=== PATIENT | male | born 1955 | race Asian ===

== ENCOUNTER 2022-05-28 04:33 | Inpatient (IN) | payer OTHER ==
[2022-05-28] MEDS ORDERED: ASPIRIN 81 MG CHEWABLE TABLET ONE (05:10)
[2022-05-28 05:29] LABS: Absolute Lymphocytes (CBC) 1.4 K/uL (0.7-4.9); Hematocrit 40.1 % (39.6-49.0); Lymphocytes % 23.2 % (15.3-44.8); MCV 84.9 fL (80-100); MPV 7.4 fL (7.6-11.3); RBC Red Blood Cell Count 4.72 M/uL (4.33-5.43)
[2022-05-28 05:35] LABS: Protime INR 1.33
[2022-05-28 05:50] LABS: Albumin 3.9 g/dL (3.4-5.0); Bilirubin Direct 0.2 mg/dL (0-0.2); Bilirubin Total 0.8 mg/dL (0.2-1.0); Magnesium 2.4 mg/dL (1.8-2.4); Protein, Total 7.3 g/dL (6.4-8.2)
--- NOTE | 2022-05-28 05:57 | RAD REPORT ---
EXAM DESCRIPTION: RAD - Chest Single View - 05/28/2022 5:30 am CLINICAL HISTORY: CHEST PAIN COMPARISON: Portable May 19 TECHNIQUE: AP portable chest image was obtained 05/28/2022 5:30 am . FINDINGS: Lungs are clear. Heart and vasculature are normal. No measurable pleural effusion and no p neumothorax. No acute bony abnormality seen. No acute aortic findings suspected. IMPRESSION: No acute cardiopulmonary process. No significant change from comparison study.
--- NOTE | 2022-05-28 06:02 | EDPHYS ---
Physician Documentation [facility] Name: Melvina Cisneros Age: 66 yrs Sex: Male : 1955 Arrival Date: 05/28/2022 Time: 04:34 Bed 5 Private MD: ED Physician Eneida Tsang HPI: 05/28 05:06 This 66 yrs old Male presents to ER via Wheelchair with complaints of Chest Pain sd2 > 30 y/o, High Blood Pressure. 05:06 66-year-old male presents with chief complaint of left-sided chest pain and sd2 hypertension. He reports he was diagnosed with a stroke in our facility last week and has been on Xarelto and aspirin since then. He also reports his blood pressure has been difficult to control since then and they have made numerous changes to his medications. He took 2 doses of clonidine last night prior to going to bed due to elevated blood pressure readings in addition to taking his other normal blood pressure medications. He states he has been having intermittent left-sided chest pain that is nonradiating with shortness of breath. He has also had some intermittent episodes of right arm pain when his blood pressure is high. He also had several episodes of vomiting. He has a history of 3 prior cardiac stents. He states he was called by his PCP, Dr. Grace, today and told to come to the hospital for an angiogram.. Historical: - Allergies: 04:53 No Known Allergies; as6 - Home Meds: 04:53 Aspirin Oral [Active]; Xarelto oral [Active]; Clonidine Oral [Active]; Metoprolol as6 Tartrate Oral [Active]; amlodipine oral [Active]; - PMHx: 04:53 Hypercholesterolemia; Hypertensive disorder; Cerebrovascular accident; as6 - PSHx: 04:53 Cardiac Stent in 2010; as6 - Immunization history:: Client reports receiving the 2nd dose of the Covid vaccine, moderna. - Social history:: Smoking status: Patient denies any tobacco usage or history of. ROS: 05:06 Constitutional: Negative for fever, chills, and weight loss, Eyes: Negative for injury, sd2 pain, redness, and discharge. 05:06 MS/Extremity: Negative for injury and deformity, Skin: Negative for injury, rash, and discoloration, Neuro: Negative for headache, numbness and tingling. 05:06 Cardiovascular: Positive for chest pain, Negative for edema, orthopnea, palpitations. 05:06 Respiratory: Positive for shortness of breath, Negative for cough, dyspnea on exertion, wheezing. 05:06 Abdomen/GI: Positive for nausea and vomiting, Negative for abdominal pain, diarrhea. Exam: 05:06 Constitutional: This is a well developed, well nourished patient who is awake, alert, sd2 and in no acute distress. Head/Face: Normocephalic, atraumatic. Eyes: EOMI, normal conjunctiva bilaterally Chest/axilla: Normal chest wall appearance and motion. Nontender with no deformity. Cardiovascular: Bradycardic rate and regular rhythm with a normal S1 and S2. No gallops, murmurs, or rubs. 2+ distal pulses. Respiratory: Lungs have equal breath sounds bilaterally, clear to auscultation and percussion. No rales, rhonchi or wheezes noted. No increased work of breathing, no retractions or nasal flaring. Abdomen/GI: Soft, non-tender, with normal bowel sounds. No guarding or rebound. No evidence of tenderness throughout. Skin: Warm, dry with normal turgor. Normal color with no rashes, no lesions, and no evidence of cellulitis. MS/ Extremity: Pulses equal, no cyanosis. Neurovascular intact. Full, normal range of motion. Ambulatory without difficulty. Psych: Awake, alert, with orientation to person, place and time. Behavior, mood, and affect are within normal limits. 05:06 ECG was reviewed by the Attending Physician. Sinus bradycardia, rate 49, no STEMI sd2 criteria Vital Signs: 04:50 BP 153 / 83; Pulse 58; Resp 15 S; Temp 97.6(O); Pulse Ox 100% on R/A; Weight 98.43 kg as6 (R); Height 5 ft. 10 in. (177.80 cm) (R); Pain 6/10; 07:30 BP 147 / 78; Pulse 46; Resp 12; Pulse Ox 100% on R/A; Pain 0/10; mb9 04:50 Body Mass Index 31.14 (98.43 kg, 177.80 cm) as6 MDM: 04:41 Patient medically screened. sd2 05:06 Differential diagnosis: Differential diagnosis includes but is not limited to: ACS, sd2 DVT/PE, pneumothorax, dissection, musculoskeletal, anxiety, anemia, electrolyte abnormality, pneumonia, CHF, COPD among others. Data reviewed: vital signs, nurses notes, EKG. : Data reviewed: lab test result(s), radiologic studies. Counseling: I had a detailed sd2 discussion with the patient and/or guardian regarding: the historical points, exam findings, and any diagnostic results supporting the discharge/admit diagnosis, lab results, radiology results, the need for further work-up and treatment in the hospital. ED course: labs and imaging reviewed. labs grossly WNCL. Trop neg. EKG with no ischemic changes. CXR with no acute process. Discussed case with Dr. Grace who recommends starting a heparin gtt in preparation for a cath and will place admit orders on his behalf including a consult to Dr. Ruiz. . 06:47 ED course: Discussed case with Dr. Ruiz. Recommends no heparin drip and Lovenox only sd2 since patient took his Xarelto yesterday. Will change orders at this time.. 05/28 04:57 Order name: Basic Metabolic Panel; Complete Time: 05:52 sd2 05/28 04:57 Order name: CBC with Diff; Complete Time: 05:38 sd2 05/28 04:57 Order name: LFT's; Complete Time: 05:52 sd2 05/28 04:57 Order name: Magnesium; Complete Time: 05:52 sd2 05/28 04:57 Order name: NT PRO-BNP; Complete Time: 05:52 sd2 05/28 04:57 Order name: PT-INR; Complete Time: 05:38 sd2 05/28 04:57 Order name: Troponin HS; Complete Time: 05:52 sd2 05/28 06:14 Order name: CBC with Automated Diff EDMS 05/28 06:14 Order name: CBC with Automated Diff EDMS 05/28 06:14 Order name: Comprehensive Metabolic Panel EDMS 05/28 06:14 Order name: Comprehensive Metabolic Panel EDMS 05/28 06:14 Order name: PTT, Activated Partial Thromb EDMS 05/28 06:14 Order name: PTT, Activated Partial Thromb EDMS 05/28 07:34 Order name: SARS RAPID mw2 05/28 04:57 Order name: XRAY Chest (1 view); Complete Time: 05:58 sd2 05/28 04:57 Order name: EKG; Complete Time: 04:58 sd2 05/28 04:57 Order name: Cardiac monitoring; Complete Time: 04:57 sd2 05/28 04:57 Order name: EKG - Nurse/Tech; Complete Time: 04:57 sd2 05/28 04:57 Order name: IV Saline Lock; Complete Time: 05:22 sd2 05/28 04:57 Order name: Labs collected and sent; Complete Time: 05:22 sd2 05/28 04:57 Order name: O2 Per Protocol; Complete Time: 04:57 sd2 05/28 04:57 Order name: O2 Sat Monitoring; Complete Time: 04:57 sd2 05/28 06:04 Order name: CT Head Brain wo Cont; Complete Time: 06:48 sd2 05/28 06:14 Order name: CONS Physician Consult EDMS 05/28 06:14 Order name: NPO; Complete Time: 07:07 EDMS 05/28 08:08 Order name: SARS-COV-2 Antigen Rapid EDMS Administered Medications: 05:22 Drug: Aspirin Chewable Tablet 324 mg Route: PO; as6 06:48 CANCELLED (Physician Discretion): Heparin (PA-Bolus No thrombolytic) - HEParin 60 sd2 units/kg IVP once; Max 5000 units 06:48 CANCELLED (Physician Discretion): Heparin (PA Drip) 12 units/kg/hr - (HEParin 05817 sd2 units, D5W 500 ml) IV at calculated rate Per protocol; Max initial rate 1000 units/hr 07:33 Drug: Lovenox (enoxaparin) 1 mg/kg Route: Sub-Q; Site: right lower abdomen; mb9 09:47 Follow up: Response: No adverse reaction mb9 Disposition Summary: 05/28/22 06:01 Hospitalization Ordered Hospitalization Status: Inpatient Admission sd2 Provider: Anibal Grace Location: Telemetry/MedSurg (Inpatient) sd2 Condition: Stable sd2 Problem: an ongoing problem sd2 Symptoms: have improved sd2 Bed/Room Type: Standard sd2 Room Assignment: 430(05/28/22 10:35) dw Diagnosis - Essential (primary) hypertension sd2 - Bradycardia, unspecified sd2 - Chest pain, unspecified sd2 Forms: - Medication Reconciliation Form sd2 - SBAR form sd2 Signatures: Dispatcher [employer] EDMaría Sanchez RN RN dw Castillo Manriquez RN RN as6 Eneida Tsang MD MD sd2 Oralia Osborn RN RN mb9 Corrections: (The following items were deleted from the chart) 04:55 04:53 Home Meds: None; as6 04:55 04:53 PMHx: Hypertensive disorder; as6 06:48 06:04 Heparin (PA-Bolus No thrombolytic) - HEParin 60 units/kg IVP once; Max 5000 units sd2 ordered. 06:48 06:04 Heparin (PA Drip) 12 units/kg/hr - (HEParin 43552 units, D5W 500 ml) IV at sd2 calculated rate Per protocol; Max initial rate 1000 units/hr ordered. sd2 10:35 06:01 sd2 dw
--- NOTE | 2022-05-28 06:02 | ER ---
Nurse's Notes [facility] Name: Melvina Cisneros Age: 66 yrs Sex: Male : 1955 Arrival Date: 05/28/2022 Time: 04:34 Bed 5 Private MD: Diagnosis: Essential (primary) hypertension;Bradycardia, unspecified;Chest pain, unspecified Presentation: 05/28 04:51 Chief complaint: Patient states: "At home my blood pressure was really high and Dr. juan Grace said to come here". Coronavirus screen: At this time, the client does not indicate any symptoms associated with coronavirus-19. Ebola Screen: No symptoms or risks identified at this time. Initial Sepsis Screen: Does the patient meet any 2 criteria? No. Patient's initial sepsis screen is negative. Does the patient have a suspected source of infection? No. Patient's initial sepsis screen is negative. Risk Assessment: Do you want to hurt yourself or someone else? Patient reports no desire to harm self or others. Onset of symptoms was May 27, 2022. 04:51 Method Of Arrival: Wheelchair as6 04:51 Acuity: ELISE 3 as6 Historical: - Allergies: 04:53 No Known Allergies; as6 - Home Meds: 04:53 Aspirin Oral [Active]; Xarelto oral [Active]; Clonidine Oral [Active]; Metoprolol as6 Tartrate Oral [Active]; amlodipine oral [Active]; - PMHx: 04:53 Hypercholesterolemia; Hypertensive disorder; Cerebrovascular accident; as6 - PSHx: 04:53 Cardiac Stent in 2010; as6 - Immunization history:: Client reports receiving the 2nd dose of the Covid vaccine, moderna. - Social history:: Smoking status: Patient denies any tobacco usage or history of. Screenin:55 Abuse screen: Denies threats or abuse. Denies injuries from another. Nutritional as6 screening: No deficits noted. Tuberculosis screening: No symptoms or risk factors identified. Fall Risk None identified. Assessment: 04:56 General: Appears in no apparent distress. Behavior is calm, cooperative. Pain: as6 Complains of pain in left clavicle, anterior aspect of left upper chest and mid-sternal area. Pain: Complains of pain in head Quality of pain is described as pressure. Neuro: Level of Consciousness is awake, alert, obeys commands, Oriented to person, place, time, situation, Reports headache. Cardiovascular: Reports chest pain, Capillary refill < 3 seconds Patient's skin is warm and dry. Respiratory: Respiratory effort is even, unlabored, Respiratory pattern is regular, symmetrical. 07:00 Reassessment: received report from LUCILA Lim. mb9 07:30 General: Appears in no apparent distress. comfortable, Behavior is calm, cooperative. mb9 Pain: Denies pain. Neuro: Level of Consciousness is awake, alert, obeys commands, Oriented to person, place, time, situation, Appropriate for age. Cardiovascular: Denies chest pain, Heart tones S1 S2 present Rhythm is sinus bradycardia. Cardiovascular: Reports that his HR usually runs between 30-50 bpm. Respiratory: Airway is patent Respiratory effort is even, unlabored, Respiratory pattern is regular, symmetrical, Breath sounds are clear bilaterally. GI: Abdomen is flat, Bowel sounds present X 4 quads. : No signs and/or symptoms were reported regarding the genitourinary system. EENT: No signs and/or symptoms were reported regarding the EENT system. Derm: Skin is pink, warm \\T\\ dry. Musculoskeletal: Range of motion: intact in all extremities. Vital Signs: 04:50 BP 153 / 83; Pulse 58; Resp 15 S; Temp 97.6(O); Pulse Ox 100% on R/A; Weight 98.43 kg as6 (R); Height 5 ft. 10 in. (177.80 cm) (R); Pain 6/10; 07:30 BP 147 / 78; Pulse 46; Resp 12; Pulse Ox 100% on R/A; Pain 0/10; mb9 04:50 Body Mass Index 31.14 (98.43 kg, 177.80 cm) as6 ED Course: 04:34 Patient arrived in ED. bp1 04:41 Eneida Tsang MD is Attending Physician. sd2 04:49 EKG done, by ED staff, reviewed by Eneida Tsang MD. wm 04:49 Placed in gown. Bed in low position. Call light in reach. Side rails up X2. Adult w/ wm patient. Warm blanket given. Client placed on continuous cardiac and pulse oximetry monitoring. NIBP monitoring applied. quality assurance monitor chassis on. Pulse ox on. 04:50 Castillo Manriquez, RN is Primary Nurse. as6 04:50 Arm band placed on. as6 04:53 Triage completed. as6 05:22 Inserted saline lock: 20 gauge in right hand, using aseptic technique. Blood collected. as6 05:22 Basic Metabolic Panel Sent. as6 05:22 CBC with Diff Sent. as6 05:22 LFT's Sent. as6 05:23 Magnesium Sent. as6 05:23 NT PRO-BNP Sent. as6 05:23 PT-INR Sent. as6 05:23 Troponin HS Sent. as6 05:32 XRAY Chest (1 view) In Process Unspecified. EDMS 06:00 Anibal Grace MD is Hospitalizing Provider. sd2 06:21 CT Head Brain wo Cont In Process Unspecified. EDMS 07:45 SARS RAPID Sent. mb9 08:03 Primary Nurse role handed off by Castillo Manriquez RN mb9 08:03 Oralia Osborn, RN is Primary Nurse. mb9 Administered Medications: 05:22 Drug: Aspirin Chewable Tablet 324 mg Route: PO; as6 06:48 CANCELLED (Physician Discretion): Heparin (AL-Bolus No thrombolytic) - HEParin 60 sd2 units/kg IVP once; Max 5000 units 06:48 CANCELLED (Physician Discretion): Heparin (AL Drip) 12 units/kg/hr - (HEParin 25086 sd2 units, D5W 500 ml) IV at calculated rate Per protocol; Max initial rate 1000 units/hr 07:33 Drug: Lovenox (enoxaparin) 1 mg/kg Route: Sub-Q; Site: right lower abdomen; mb9 09:47 Follow up: Response: No adverse reaction mb9 Medication: 04:57 VIS not applicable for this client. as6 Outcome: 06:01 Decision to Hospitalize by Provider. sd2 11:30 Patient left the ED. mb9 Signatures: Dispatcher [employer] EDSD Jessika Newsome [facility] Lis Stone Castillo Manriquez, RN RN as6 Eneida Tsang MD MD sd2 Oralia Osborn RN RN mb9 Corrections: (The following items were deleted from the chart) 04:55 04:53 Home Meds: None; as 04:55 04:53 PMHx: Hypertensive disorder; as6 as6
[2022-05-28] MEDS ORDERED: ONDANSETRON 4 MG/2 ML VIAL IV PRN (06:07)
[2022-05-28] MEDS ORDERED: ACETAMINOPHEN 500 MG TAB PO PRN (06:07)
--- NOTE | 2022-05-28 06:44 | RAD REPORT ---
EXAM DESCRIPTION: CT - Head Brain Wo Cont - 05/28/2022 6:21 am CLINICAL HISTORY: Hypertensive emergency COMPARISON: Head angio dated 05/19/2022; Brain Wo Cont dated 05/19/2022 TECHNIQUE: Axial 5 mm thick images of the head were obtained without IV contrast. All CT scans are performed using dose optimization technique as appropriate and may include automated exposure control or mA/KV adjustment according to patient size. FINDINGS: No intracranial hemorrhage is present. No focal mass lesion identified. No cerebral edema or sulcal effacement. No midline shift is present. Ventricles are normal size, similar to prior imagi ng. An acute cortical based infarction is not seen. No abnormal extra-axial fluid collections. Scatte red hypodensities are seen in the cerebral white matter matching areas of white matter disease seen o n the recent MRI study. Mastoid air cells and visualized portions of the paranasal sinuses are clear. No acute bony findings. IMPRESSION: Negative non-contrast CT head examination for acute intracranial process. Above detailed findings are stable from the May 19 examination.
[2022-05-28] MEDS ORDERED: HEPARIN/D5W 25,000 UNIT/500 ML BAG IV SCH (07:00)
[2022-05-28] MEDS ORDERED: ENOXAPARIN 100 MG/ML SYR SQ ONE (07:14)
[2022-05-28 08:08] LABS: SARS-CoV-2 Antigen Rapid Res Negative (Negative)
[2022-05-28] MEDS ORDERED: ENOXAPARIN 100 MG/ML SYR SQ SCH ×3 (09:00→21:00)
[2022-05-28 09:57] VITALS: BMI 30.9
--- NOTE | 2022-05-28 16:14 | EKG ---
Test Date: 2022-05-28 Test Time: 04:41:26 Jury Consultant: MEASUREMENT RESULTS: Intervals: Rate: 49 WV: 206 QRSD: 90 QT: 468 QTc: 422 [place]: P: 41 WV: 206 QRS: 33 T: 0 INTERPRETIVE STATEMENTS: Sinus bradycardia Possible Inferior infarct, age undetermined Abnormal ECG Compared to ECG 05/19/2022 11:47:20 Sinus arrhythmia no longer present Myocardial infarct finding still present Electronically Signed On 05-28-22 16:13:26 CDT by Adrian Ruiz
--- NOTE | 2022-05-28 19:22 | P.HP ---
Certification for Inpatient Patient admitted to: Observation With expected LOS: <2 Midnights Practitioner: I am a practitioner with admitting privileges, knowledge of patient current condition, hospital course, and medical plan of care. Services: Services provided to patient in accordance with Admission requirements found in Title 42 Section 412.3 of the Code of Federal Regulations Patient History Date of Service: 05/28/22 History of Present Illness: RANDALL HAS BEEN CARDIAC PATIENT WITH CORONARY DISEASE AND HAS HAD RECENT EMBOLIC EVENTS TO BRAIN WITH PARESTHESIA IN LEGS AND R ELBOW AND WEAKNESS IN L LEG THAT WAS MILD. AFTER THAT HE HAS BEEN ON XARELTO. HIS BP HAS BEEN FLUCTUATING SINCE THEN AND HAS NEEDED CLONIDINE PRN AND I HAD PUT HIM ON ELDEPRYL TO CUT DOWN ALDOSTERONE. HE HAD ARM PAIN AND VOMITING YESTERDAY SO I ASKED HIM TO COME TO ER FOR UNSTABLE ANGINA AND IMPENDING [place] AND HE WAS ADMITTED WITH PLAN FOR CATH IN AM. HE NEEDS TO BE ANTICOAGULATED TO CUT DOWN SYMPTOMS AND HIS BP HAS BEEN VERY STABLE AFTER BEING ON LOVENOX I PRESUME IT IS THE UNSTABLE ANGINA THAT WAS FLUCTUATING HIS BP. Allergies No Known Allergies Allergy (Unverified 05/19/22 21:38) Home medications list reviewed: Yes Home Medications: Rivaroxaban [Xarelto] 20 mg PO DAILY #90 tab 05/20/22 Amlodipine [Norvasc*] 5 mg PO BEDTIME 05/28/22 Aspirin [Aspirin EC 81 MG] 81 mg PO BEDTIME 05/28/22 Eplerenone 50 mg PO DAILY 05/28/22 Rosuvastatin Calcium 20 mg PO BEDTIME 05/28/22 cloNIDine HCL [Clonidine HCl] 0.1 mg PO PRN 05/28/22 - Past Medical/Surgical History Diabetic: No -: HTN -: HLD -: Obesity - Family History Father -: Stroke Mother -: Hypertension - Social History Smoking Status: Never smoker Alcohol use: No CD- Drugs: No Caffeine use: No Review of Systems 10-point ROS is otherwise unremarkable General: Weakness Physical Examination - Vital Signs Temperature: 98.1 F Blood Pressure: 132/64 Pulse: 40 Respirations: 16 Pulse Ox (%): 97 - Physical Exam General: Oriented x3, Moderate distress HEENT: Atraumatic, PERRLA, Mucous membr. moist/pink, EOMI, Sclerae nonicteric Neck: Supple, 2+ carotid pulse no bruit, No LAD, Without JVD or thyroid abnormality Respiratory: Clear to auscultation bilaterally, Normal air movement Cardiovascular: Regular rate/rhythm, Normal S1 S2 Gastrointestinal: Normal bowel sounds, No tenderness Musculoskeletal: No tenderness Integumentary: No rashes Neurological: Normal gait, Normal speech, Normal strength at 5/5 x4 extr, Normal tone, Normal affect Lymphatics: No axilla or inguinal lymphadenopathy - Studies Laboratory Data (last 24 hrs) 05/28/22 05:19: PT 14.6 H, INR 1.33 05/28/22 05:19: WBC 6.10, Hgb 13.7, Hct 40.1, Plt Count 282 05/28/22 05:19: Sodium 133 L, Potassium 4.0, BUN 10, Creatinine 1.02, Glucose 108 H, Magnesium 2.4, Total Bilirubin 0.8, AST 22, ALT 50, Alkaline Phosphatase 49 Assessment and Plan - Problems (Diagnosis) (1) Unstable angina Current Visit: Yes Status: Acute Plan: HPI I SUSPECT THIS IS THE REASON FOR UNCONTROLLED HTN. NEEDS ANGIOGRAM IN AM. NPO AFTER MIDNIGHT. HOLD XARELTO FOR 24 HOURS AT LEAST. (2) Uncontrolled hypertension Current Visit: Yes Status: Acute Plan: CAN BE MULTIFACTORIAL HPI OR RENAL ARTERY STENOSIS OR PRIMARY HYPERALDOSTERONISM. PROGNOSIS GUARDED. (3) Acute ischemic multifocal multiple vascular territories stroke Current Visit: No Status: Acute Plan: XARELTO CAN BE RESUMEED AFTER CATH. - Advance Directives Does patient have a Living Will: Yes Does patient have a Durable POA for Healthcare: Yes
[2022-05-28] MEDS ORDERED: cloNIDine HCL 0.1 MG TAB PO SCH (21:00)
[2022-05-28] MEDS: AMLODIPINE 5 MG TAB PO SCH (21:35)
[2022-05-28] MEDS: ASPIRIN EC 81 MG TAB PO SCH (21:36)
[2022-05-28] MEDS: ROSUVASTATIN 10 MG TAB PO SCH (21:36)
[2022-05-28] MEDS: NACHLORIDE 0.45% 1,000 ML IV SCH (21:41)
--- NOTE | 2022-05-29 00:03 | CON ---
Date of Consultation: 05/28/2022 Reason For Consultation: Chest pain. History Of Present Illness: This is a 66-year-old male, well known to me with recent thromboembolic stroke, who comes into the hospital with chest pain, left sided that goes to the left arm with numbne ss feeling. He has been having a difficulty controlling his blood pressure and the patient has been having uncontrolled blood pressure. He keeps checking his blood pressure every 15-20 minutes and whe n blood pressure goes higher he gets more anxious and blood pressure keeps going up. He started havi ng chest pain so presented to the emergency room. Past Medical History: Hypertension, hyperlipidemia, and obesity. Medications: Refer to reconciliation sheet for detailed list. Allergies: NO KNOWN DRUG ALLERGIES. Family History: No premature coronary artery disease or cancer. Social History: Does not smoke or drink. Does not use any drugs. Review of Systems: All systems reviewed and are negative except for mentioned in HPI. Physical Examination: Vital Signs: Reviewed. Head And Neck: Pupils are equal and reactive to light. Intact eye movements. No JVD. No cervical lymphadenopathy. Neck: Supple. Thyroid is not enlarged. Lungs: Clear to auscultation bilaterally. No rhonchi, wheezing, or crackles. No accessory muscle u se. Heart: Regular rate and rhythm. No extra sounds. Abdomen: Soft, nontender. Bowel sounds positive. No organomegaly. No masses or hernia. No rigidi ty or rebound. Extremities: No edema, clubbing, or cyanosis. Intact pulses. Skin: No rashes. Neurologic: Alert, awake, and oriented x3. No acute focal deficits appreciated. Lymph Nodes: No cervical or axillary lymphadenopathy. Investigations: BUN is 10, creatinine 1.02, sodium 133. Hemoglobin 13.7. His troponin is 19. NT-p roBNP is 328. Assessment And Plan: 1.Chest pain, suggestive of unstable angina. Keep n.p.o. past midnight. We will plan for coronary angiogram on him tomorrow. 2.Recent stroke due to thromboembolic event. The patient was on Xarelto. This was stopped to allow left heart catheterization procedure. Meanwhile we put him on Lovenox and to stop after midnight to night and keep him n.p.o. We will plan for coronary angiogram tomorrow morning. 3.Hypertension. Blood pressure is controlled. 4.Bradycardia. The patient is on clonidine. I will go ahead and discontinue that and plan to adjus t the dose of Norvasc if needed and can add hydrochlorothiazide 25 mg daily for better blood pressure control. SR/JUAN Voice ID: [id number] Report ID: [id number]
[2022-05-29 06:11] LABS: Absolute Lymphocytes (CBC) 1.6 K/uL (0.7-4.9); Hematocrit 37.1 % (39.6-49.0); Lymphocytes % 29.5 % (15.3-44.8); MCV 84.5 fL (80-100); MPV 7.5 fL (7.6-11.3); RBC Red Blood Cell Count 4.39 M/uL (4.33-5.43)
[2022-05-29 06:26] LABS: Albumin 3.4 g/dL (3.4-5.0); Bilirubin Total 0.6 mg/dL (0.2-1.0); Potassium 3.8 mmol/L (3.5-5.1); Protein, Total 6.6 g/dL (6.4-8.2)
[2022-05-29] MEDS ORDERED: EPLERENONE 50 MG PO SCH (09:00)
[2022-05-29] MEDS ORDERED: NA CHLORIDE 0.9% 500 ML ONE (12:22)
[2022-05-29] MEDS: NACHLORIDE 0.45% 1,000 ML IV SCH (16:00)
[2022-05-29] MEDS: ROSUVASTATIN 10 MG TAB PO SCH (20:16)
[2022-05-29] MEDS: ASPIRIN EC 81 MG TAB PO SCH (20:16)
[2022-05-29] MEDS: ENOXAPARIN 100 MG/ML SYR SQ SCH (20:16)
[2022-05-29] MEDS: hydroCHLOROthiazide 25 MG TAB PO SCH (20:16)
[2022-05-29] MEDS: AMLODIPINE 5 MG TAB PO SCH (20:17)
[2022-05-29] MEDS: MELATONIN 5 MG TABLET PO SCH (20:55)
--- NOTE | 2022-05-29 20:59 | PN ---
Date of Progress Note: 05/29/2022 Subjective: Seen by bedside, doing clinically well, still on and off with some chest discomfort. Do es not have any nausea, vomiting, or diarrhea. No dysuria, polyuria, or urinary urgency. No skin ra sh. Review of Systems: All other systems reviewed and they are negative. Physical Examination: Vital Signs: His blood pressure is 162/72, his temperature is 98.3, heart rate is 45, and breathing at 14. General: Pleasant, middle-aged male, in no apparent distress. Head and Neck: Pupils are equal, reactive to light. Intact eye movements. No JVD. No cervical lym phadenopathy. Neck: Supple. Thyroid is not enlarged. Lungs: Clear to auscultation bilaterally. No rhonchi, rales, or crackles. No accessory muscle use. Heart: Regular rate and rhythm. No extra sounds. Abdomen: Soft, nontender. Bowel sounds positive. No organomegaly noted. No masses or hernia. No rigidity or rebound. Extremities: No edema, clubbing, or cyanosis. Intact pulses. Skin: No rash. Neurologic: Alert, awake, oriented x3. No acute focal deficit appreciated. Investigations: Labs were reviewed. Assessment And Recommendations: 1.Chest pain suggestive of possible unstable angina. I will check 2 further sets of cardiac enzymes and plan for coronary angiogram on him early next week. 2.Hypertension, still uncontrolled at hydrochlorothiazide 25 mg daily and continue Norvasc. 3.History of recent stroke and thromboembolic. Continue Lovenox and to be held on Wednesday night for coronary angiogram on Wednesday. SR/MODL Voice ID: [id number] Report ID: [id number]
[2022-05-30] MEDS ORDERED: ASPIRIN EC 81 MG TAB PO SCH (09:00)
[2022-05-30] MEDS: hydroCHLOROthiazide 25 MG TAB PO SCH (09:10)
[2022-05-30] MEDS: ENOXAPARIN 100 MG/ML SYR SQ SCH ×2 (09:10→21:00)
--- NOTE | 2022-05-30 11:29 | P.PN ---
Subjective Date of Service: 05/29/22 Chief Complaint: FEELS WELL , NO PAIN. NO NAUSEA. Subjective: Improving ASYOAN IS DOING GOOD. BP FLUCTUATES. NO CHEST PAIN. HE WAS TO HAVE CATH YESTERDAY BUT WAS BUMPED OFF SCHEDULE A MASSIVE [place] PATIENT SHOWED UP IN ER AND THAT CONSUMED OR TIME. HE IS OKAY WITH THIS. DR. KIMBLE CAME TO SEE HIM Review of Systems 10-point ROS is otherwise unremarkable Physical Examination - Vital Signs Temperature: 97.6 F Blood Pressure: 147/70 Pulse: 39 Respirations: 15 Pulse Ox (%): 98 - Physical Exam General: Alert, In no apparent distress, Oriented x3 HEENT: Atraumatic, PERRLA, EOMI Neck: Supple, JVD not distended Respiratory: Clear to auscultation bilaterally, Normal air movement Cardiovascular: Regular rate/rhythm, Normal S1 S2 Gastrointestinal: Normal bowel sounds, No tenderness Musculoskeletal: No tenderness Integumentary: No rashes Neurological: Normal speech, Normal tone, Normal affect Lymphatics: No axilla or inguinal lymphadenopathy - Studies Medications List Reviewed: Yes Assessment And Plan - Current Problems (Diagnosis) (1) Unstable angina Current Visit: Yes Status: Acute Plan: HPI I SUSPECT THIS IS THE REASON FOR UNCONTROLLED HTN. NEEDS ANGIOGRAM IN AM. NPO AFTER MIDNIGHT. HOLD XARELTO FOR 24 HOURS AT LEAST. CONTINJE LOVENOX BID. ASP 81 MG DAILY. CATH NOW POSTPONED TO WEDNESDAY. (2) Uncontrolled hypertension Current Visit: Yes Status: Acute Plan: CAN BE MULTIFACTORIAL HPI OR RENAL ARTERY STENOSIS OR PRIMARY HYPERALDOSTERONISM. PROGNOSIS GUARDED. (3) Acute ischemic multifocal multiple vascular territories stroke Current Visit: No Status: Acute Plan: XARELTO CAN BE RESUMEED AFTER CATH.
--- NOTE | 2022-05-30 11:31 | P.PN ---
Subjective Date of Service: 05/30/22 Chief Complaint: FEELS WELL , NO PAIN Subjective: Improving ASYOAN IS DOING GOOD. BP FLUCTUATES. NO CHEST PAIN. HE WAS TO HAVE CATH YESTERDAY BUT WAS BUMPED OFF SCHEDULE A MASSIVE [place] PATIENT SHOWED UP IN ER AND THAT CONSUMED OR TIME. HE IS OKAY WITH THIS. DR. KIMBLE CAME TO SEE HIM HE IS STABLE. FAMILY IS HERE. Review of Systems 10-point ROS is otherwise unremarkable Physical Examination - Vital Signs Temperature: 97.6 F Blood Pressure: 147/70 Pulse: 39 Respirations: 15 Pulse Ox (%): 98 - Physical Exam General: Alert, In no apparent distress, Oriented x3 HEENT: Atraumatic, PERRLA, EOMI Neck: Supple, JVD not distended Respiratory: Clear to auscultation bilaterally, Normal air movement Cardiovascular: Regular rate/rhythm, Normal S1 S2 Gastrointestinal: Normal bowel sounds, No tenderness Musculoskeletal: No tenderness Integumentary: No rashes Neurological: Normal speech, Normal tone, Normal affect Lymphatics: No axilla or inguinal lymphadenopathy - Studies Medications List Reviewed: Yes Assessment And Plan - Current Problems (Diagnosis) (1) Unstable angina Current Visit: Yes Status: Acute Plan: HPI I SUSPECT THIS IS THE REASON FOR UNCONTROLLED HTN. NEEDS ANGIOGRAM IN AM. NPO AFTER MIDNIGHT. HOLD XARELTO FOR 24 HOURS AT LEAST. CONTINJE LOVENOX BID. ASP 81 MG DAILY. CATH NOW POSTPONED TO WEDNESDAY. CONT MEDS. CATH ON WEDNESDAY HE WILL ALSO LOOK AT RENAL ARTERIES. (2) Uncontrolled hypertension Current Visit: Yes Status: Acute Plan: CAN BE MULTIFACTORIAL HPI OR RENAL ARTERY STENOSIS OR PRIMARY HYPE RALDOSTERONISM. PROGNOSIS GUARDED. (3) Acute ischemic multifocal multiple vascular territories stroke Current Visit: No Status: Acute Plan: XARELTO CAN BE RESUMEED AFTER CATH.
--- NOTE | 2022-05-30 17:05 | PN ---
Date of Progress Note: 05/30/2022 Subjective: Seen by bedside. He is doing well today. Had an episode of chest pain earlier this mor brooks and resolved spontaneously. Blood pressure has been stable. Review of Systems: On and off chest pain. No nausea, vomiting, diarrhea. No abdominal pain. No dysuria, polyuria, or urinary urgency. No skin rash, headache. All other systems reviewed and they were negative. Physical Examination: Vital Signs: Temperature 97.8, pulse 51, breathing at 18, blood pressure is 148/81, saturating 98% o n room air. General: Pleasant middle-aged male, in no apparent distress. Head and Neck: Pupils are equal, reactive to light. Intact eye movements. No JVD. No cervical lym phadenopathy. Neck is supple. Thyroid is not enlarged. Lungs: Clear to auscultation bilaterally. No rhonchi, wheezing, or crackles. No accessory muscle u se. Heart: Regular rate and rhythm. No extra sounds. Abdomen: Soft, nontender. Bowel sounds positive. No organomegaly. No masses or hernia. No rigidi ty or rebound. Extremities: No edema, clubbing, or cyanosis. Intact pulses. Skin: No rash. Neurologic: Alert, awake, oriented x3. No acute focal deficits appreciated. Investigations: Labs were reviewed. Assessment And Recommendations: 1.Chest pain, on and off, suggestive of unstable angina. He is on anticoagulation and aspirin. Jong n for coronary angiogram early Wednesday morning. 2.Hypertension. I asked the patient to avoid clonidine completely as it is causing significant rebo und hypertension. Keep him on amlodipine and hydrochlorothiazide was introduced. Blood pressure is stable now. Continue current management for now and adjust further the amlodipine dose if needed. 3.Dyslipidemia. Continue statin. SR/MODL Voice ID: [id number] Report ID: [id number]
[2022-05-30] MEDS: ROSUVASTATIN 10 MG TAB PO SCH (21:00)
[2022-05-30] MEDS: MELATONIN 5 MG TABLET PO SCH (21:01)
[2022-05-30] MEDS: ASPIRIN EC 81 MG TAB PO SCH (21:01)
[2022-05-30] MEDS: AMLODIPINE 5 MG TAB PO SCH (21:01)
[2022-05-31] MEDS: ENOXAPARIN 100 MG/ML SYR SQ SCH ×2 (09:27→18:36)
[2022-05-31] MEDS: hydroCHLOROthiazide 25 MG TAB PO SCH (09:27)
[2022-05-31] MEDS ORDERED: NITROGLYCERIN 0.4 MG/TAB SL ONE (18:14)
[2022-05-31] MEDS ORDERED: NA CHLORIDE 0.9% 1,000 ML ONE (18:53)
[2022-05-31 19:45] LABS: Absolute Lymphocytes (CBC) 1.6 K/uL (0.7-4.9); Hematocrit 38.7 % (39.6-49.0); MPV 7.6 fL (7.6-11.3); RBC Red Blood Cell Count 4.61 M/uL (4.33-5.43)
[2022-05-31 19:51] LABS: Protime INR 1.15
[2022-05-31 20:02] LABS: Albumin 3.9 g/dL (3.4-5.0); Bilirubin Total 0.6 mg/dL (0.2-1.0); Magnesium 2.1 mg/dL (1.8-2.4); Potassium 3.6 mmol/L (3.5-5.1); Protein, Total 7.1 g/dL (6.4-8.2)
[2022-05-31] MEDS: MELATONIN 5 MG TABLET PO SCH (20:34)
[2022-05-31] MEDS: AMLODIPINE 5 MG TAB PO SCH (20:34)
[2022-05-31] MEDS: ASPIRIN EC 81 MG TAB PO SCH (20:37)
[2022-05-31] MEDS: ROSUVASTATIN 10 MG TAB PO SCH (20:40)
--- NOTE | 2022-05-31 22:31 | PN ---
Date of Progress Note: 05/31/2022 Subjective: Seen by bedside, doing clinically better. Blood pressure is leveling nicely. Review of Systems: On and off chest pain continues to happen. No nausea, vomiting, or diarrhea. No abdominal pain. No dysuria, polyuria, or urinary urgency. No skin rash or headache. All other systems were reviewed a nd they were negative. Physical Examination: Vital Signs: Reviewed. Blood pressure is 154/82 and earlier it was 135/71, heart rate 55, temperatu re is 98.6, and breathing 16 breaths per minute. General: A pleasant middle-aged male, in no distress. Head And Neck: Pupils are equal and reactive to light. Intact eye movements. No JVD. No cervical lymphadenopathy. Neck: Supple. Thyroid is not enlarged. Lungs: Clear to auscultation bilaterally. No rhonchi, wheezing, or crackles. No accessory muscle u se. Heart: Regular rate and rhythm. No extra sounds. Abdomen: Soft, nontender. Bowel sounds positive. No organomegaly. No masses or hernia. No rigidi ty or rebound. Extremities: No edema, clubbing, or cyanosis. Intact pulses. Skin: No rashes. Neuro: Alert, awake. No acute focal deficits appreciated. Lymph Nodes: No cervical or axillary adenopathy. Investigations: Labs were reviewed. Assessment And Recommendation: 1.Chest pain. No history of coronary artery disease. This could be unstable angina. Keep n.p.o. p ast midnight. Plan for coronary angiogram tomorrow morning. 2.Hypertension. Blood pressure is much better. Continue Norvasc 5 and hydrochlorothiazide 25 mg da rina and low-salt diet. SR/MODL Voice ID: [id number] Report ID: [id number]
[2022-06-01] MEDS ORDERED: HEPA 1000U/500MLS 2,000 UNIT/1,000 ML BAG IV ONE (06:15)
[2022-06-01] MEDS ORDERED: VERAPAMIL HCL 10 MG/4 ML VIAL IV ONE (06:16)
[2022-06-01] MEDS ORDERED: HEPARIN 5000 UNIT/ML 1 ML VIAL ONE (06:16)
[2022-06-01] MEDS ORDERED: NITROGLYCERIN/D5W 25 MG/250 ML BTL IV ONE (06:17)
[2022-06-01] MEDS ORDERED: NA CHLORIDE 0.9% 0 ML ONE (06:17)
[2022-06-01] MEDS ORDERED: NITROGLYCERIN 100 MCG/ML SYR (for cath lab use only) IV ONE (06:17)
[2022-06-01] MEDS ORDERED: ATROPINE SULF 1 MG/10 ML SYR IV ONE (06:17)
[2022-06-01] MEDS ORDERED: HEPARIN 10,000 UNIT/10 ML VIAL IV ONE ×2 (06:17→08:10)
[2022-06-01] MEDS ORDERED: FENTANYL CITR 100 MCG/2 ML ONE (06:18)
[2022-06-01] MEDS ORDERED: MIDAZOLAM HCL 2 MG/2 ML INJ ONE (06:19)
[2022-06-01] MEDS ORDERED: LIDOCAINE 1% MPF 30 ML VIAL ONE (06:32)
[2022-06-01] MEDS ORDERED: REGADENOSON 0.4 MG/5 ML SYR IV ONE ×2 (07:12→07:34)
[2022-06-01] MEDS ORDERED: CLOPIDOGREL 75 MG TABLET ONE (07:21)
[2022-06-01] MEDS ORDERED: HEPA 1000U/500MLS 1,000 UNIT/500 ML BAG IV ONE (07:39)
[2022-06-01] MEDS ORDERED: ASPIRIN 325 MG TAB ONE (08:10)
[2022-06-01] MEDS: hydroCHLOROthiazide 25 MG TAB PO SCH ×2 (09:00→13:59)
--- NOTE | 2022-06-01 17:14 | P.PN ---
Subjective Date of Service: 06/01/22 Chief Complaint: HAS CATH DONE TODAY. Subjective: Improving ASYOAN HAD CATH TODAY , NEW STENT IN RCA, REVISED IN LAD MID AND THERE ARE TWO AREAS OF 50% PROX LAD AND 90% VERY DISTAL LAD THAT ARE LEFT ALONE FOR NOW. HE IS STABLE. DOING GREAT. HE HAS NO CHEST PAIN. LAST NIGHT HE HAD HYPOTENSION AFTER NTG AND THAT IS EXPLAINED BY RCA LESION. Review of Systems 10-point ROS is otherwise unremarkable General: Weakness Physical Examination - Vital Signs Temperature: 97.5 F Blood Pressure: 136/79 Pulse: 67 Respirations: 18 Pulse Ox (%): 99 - Physical Exam General: In no apparent distress, Oriented x3 HEENT: Atraumatic, PERRLA, EOMI Neck: Supple, JVD not distended Respiratory: Clear to auscultation bilaterally, Normal air movement Cardiovascular: Regular rate/rhythm, Normal S1 S2 Gastrointestinal: Normal bowel sounds, No tenderness Musculoskeletal: No tenderness Integumentary: No rashes Neurological: Normal speech, Normal tone, Normal affect Lymphatics: No axilla or inguinal lymphadenopathy - Studies Medications List Reviewed: Yes Assessment And Plan - Current Problems (Diagnosis) (1) Unstable angina Current Visit: Yes Status: Acute Plan: HPI I SUSPECT THIS IS THE REASON FOR UNCONTROLLED HTN. NEEDS ANGIOGRAM IN AM. NPO AFTER MIDNIGHT. HOLD XARELTO FOR 24 HOURS AT LEAST. CONTINJE LOVENOX BID. ASP 81 MG DAILY. CATH NOW POSTPONED TO WEDNESDAY. CONT MEDS. CATH ON WEDNESDAY HE WILL ALSO LOOK AT RENAL ARTERIES. (2) Uncontrolled hypertension Current Visit: Yes Status: Acute Plan: CAN BE MULTIFACTORIAL HPI OR RENAL ARTERY STENOSIS OR PRIMARY HYPERALDOSTERONISM. PROGNOSIS GUARDED. (3) Acute ischemic multifocal multiple vascular territories stroke Current Visit: No Status: Acute Plan: XARELTO CAN BE RESUMEED AFTER CATH. (4) Occluded coronary artery stent Current Visit: Yes Status: Acute Plan: DR KIMBLE REDID THE STENT IN LAD. (5) Status post coronary artery stent placement Current Visit: Yes Status: Acute Plan: RCA STENT IS NEW. HE WILL BEON PLAVIX FOR SIX MONTHS AT LEAST XARELTO FOR LIFE TIME HE HAD EMBOLIC STROKE. ASPIRIN FOR A MONTH. RISK OFBLEEDING IS HIGH BUT HE HAS TO FOLLOW THIS TO AVOID STENT CLOSURE AND PREVENT EMBOLIC STROKE PATIENT AND FAMILY AWARE.
--- NOTE | 2022-06-01 19:47 | PN ---
Date of Progress Note: 06/01/2022 Subjective: Seen by bedside. He had an episode of chest pain yesterday and with the sublingual nitr oglycerin, his blood pressure dropped from 130 to 75. He was given some fluids and blood pressure re solved. Blood pressure normalized and he did better afterwards. Denies having any chest pain this m orning. Review of Systems: On and off chest pain. No nausea, vomiting, diarrhea. No abdominal pain. No dysuria, polyuria, or urinary urgency. No skin rash. All other systems reviewed and they were negative. Physical Examination: Vital Signs: His temperature is 99.1, pulse 52, breathing at 18, blood pressure 147/77, saturating 9 8% on room air. General: Pleasant, a middle-aged male, in no apparent distress. Head and Neck: Pupils are equal, reactive to light. Intact eye movements. No JVD. No cervical lym phadenopathy. Neck is supple. Thyroid is not enlarged. Lungs: Clear to auscultation bilaterally. No rhonchi, wheezing, or crackles. No accessory muscle u se. Heart: Regular rate and rhythm. No extra sounds. Abdomen: Soft, nontender. Bowel sounds positive. No organomegaly. No masses or hernia. No rigidi ty or rebound. Extremities: There is no edema, clubbing, or cyanosis. Intact pulses. Skin: No rash. Neurologic: Alert, awake, oriented x3. No acute focal deficits appreciated. Lymph Nodes: No cervical or axillary lymphadenopathy. Investigations: Labs were reviewed. Assessment And Recommendations: 1.Unstable angina. He is n.p.o. We will plan for coronary angiogram today and percutaneous coronar y intervention as indicated. 2.Hypertension. Blood pressure is acceptable. Continue Norvasc and hydrochlorothiazide. SR/MODL Voice ID: [id number] Report ID: [id number]
[2022-06-01] MEDS: ROSUVASTATIN 10 MG TAB PO SCH (21:03)
[2022-06-01] MEDS: AMLODIPINE 5 MG TAB PO SCH (21:04)
[2022-06-01] MEDS: ASPIRIN EC 81 MG TAB PO SCH (21:04)
[2022-06-01] MEDS: MELATONIN 5 MG TABLET PO SCH (21:04)
[2022-06-01] MEDS: ENOXAPARIN 100 MG/ML SYR SQ SCH (21:04)
[2022-06-01 22:09] VITALS: O2SAT 100
--- NOTE | 2022-06-02 00:38 | OP ---
Date of Procedure: 06/01/2022 Surgeon: LAYO KIMBLE Procedures Performed: 1.Selective coronary angiogram. 2.Left heart catheterization. 3.IVUS of left main. 4.FFR of left main and LAD, which was not significant at 0.83 and on IVUS of left main minimum lumin al area was 6.4 sq mm. 5.FFR of the RCA, which was significant at 0.74. 6.PCI of the proximal to mid RCA status post successful PCI. Used 3.5 x 38 mm Synergy drug-eluting stent and was dilated using 4.0 x 20 mm NC balloon. Access: Right radial artery 6-[place]izen [place] closed with TR band. Complications: None. Estimated Blood Loss: Bleeding less than 10 mL. Indication: Unstable angina. Anesthesia: Total sedation time was 75 minutes. Used fentanyl, Versed. Description Of Procedure: After risks, benefits, and alternatives were explained, the patient agreed to procedure and signed informed consent. The patient was brought into the cardiac catheterization laboratory and prepped and draped in usual sterile fashion. Then I accessed right radial artery usin g pediatric micropuncture kit, placed a 6-[place] Slender sheath and took 5-[place] Sprague 4 catheter in to aortic root, engaged left main and right coronary artery, took standard views. Catheter was advan moses over the wire into the LV, measured the LVEDP and pullback did not record any gradient. Systemic heparin then was given to assure ACT level to be above 250 throughout the procedure and then I took a EBU 3.5 guide into the aortic root, engaged left main and then I sent a Runthrough wire into the le ft main and then LAD and performed IVUS on the left main. The minimal luminal area was 6.4 sq mm and then I performed FFR also by sending the pressure wire into the aortic root and pressures were equal ized and then advanced the wire into the left main then LAD passing the area of stenosis and FFR was done using Lexiscan and it was not significant at 0.83. Wire was removed. Final angiogram was satis factory. Then, I exchanged for a 6-[place] JR4 guide, engaged the RCA and there was a patent stent wi th some significant ISR and then possibly 70%-80% stenosis in the mid segment. FFR was performed and was positive at 0.74 and pulling back the wire, there was no drift. Then, I proceeded with pre-dila ting the lesion and then placed the stent from the ostial RCA to the midportion covering all the area of stenosis and the stent was a 3.5 x 38 mm Synergy drug-eluting stent and then I used a 4.0 x 20 mm NC balloon to post dilate with excellent results. I then removed the wires and the catheter and she ath and placed TR band with good hemostasis. Findings: 1.Left main mid 40%-50%; however, by IVUS minimal luminal area was 6.4 sq mm and FFR was 0.83, which is insignificant. 2.LAD: Proximal to mid LAD stent is patent. Diagonal branch #1 has 70% stenosis ostially and then the LAD appears to be normal, good caliber vessel until the very distal portion at the apex, there is a long 99% stenosis. 3.Left circumflex: Moderate sized and normal. 4.RCA with severe proximal to mid RCA stenosis. FFR positive at 0.74, status post successful PCI as above. 5.Elevated LVEDP at 15 mmHg. Conclusion: 1.Severe right coronary artery stenosis as above. 2.Moderate left main stenosis to be monitored. 3.Severe distal left anterior descending stenosis, which will be left to medical therapy unless the patient has symptoms. Plan: Aspirin, Plavix, and statin. He was loaded with aspirin and Plavix before the procedure today . Outpatient followup with a stress test. If there is ischemia still present then we will bring him back for that LAD after a trial of m aximum medical therapy. /MARIEL Voice ID: [id number] Report ID: [id number]
[2022-06-02] MEDS ORDERED: CLOPIDOGREL 75 MG TABLET PO SCH (09:00)
[2022-06-02 09:35] LABS: Folic Acid, (Folate) 10.2 ng/mL (3.1-17.5)
[2022-06-02] MEDS: hydroCHLOROthiazide 25 MG TAB PO SCH (10:33)
[2022-06-02 10:34] VITALS: BP 152/80
[2022-06-02 11:03] VITALS: TEMP 98.4
[2022-06-02] MEDS ORDERED: RIVAROXABAN 20 MG TABLET PO SCH (17:00)
--- NOTE | 2022-06-03 14:19 | PN ---
Subjective: I saw him in the evening about 5-6 o'clock. He is feeling good except for occasional ch est tightness or heaviness. He had one episode of shortness of breath. Otherwise, he is comfortable . I asked to put him on oxygen because he could still be having some unstable angina and oxygen will reduce the stress on the heart. Physical Examination: Vital Signs: Blood pressure fluctuates from 110 systolic to 150 systolic. Chest: Clear. Heart: Regular. Abdomen: No guarding, no rebound, no rigidity. Assessment/plan: Unstable angina. Oxygen added to current regimen of Lovenox and aspirin. I asked Dr. Ruiz if he wants to add Plavix for the symptoms or not. The patient, after I left the hospital , was given nitroglycerin sublingual for his chest pain by the hospitalist doctor. He developed hypo tension down to 60 systolic with it and after it was discontinued, the patient was stabilized and blo od pressure came up to 150 systolic. I will continue his blood pressure regimen at nighttime, which is amlodipine 2.5 mg instead of 5 mg and add another 2.5 mg in a couple of hours if the blood pressur e is too high and discussed with patient's nurse about it. Tomorrow morning, he will be getting germaine ogram and cardiac catheterization for defining his coronary artery disease and at the same time, he w ill need a renal artery angiogram if possible with the limitation of the contrast load. PATRICIA/JUAN Voice ID: [id number] Report ID: [id number]
[2022-06-05 12:27] LABS: Protein C Antigen 123 % normal (70-140)
== END 2022-06-02 15:08 | disposition home or self-care (01) | DRG 247 ==
LOC: ER 04:33 → ERHOLD 06:21 → 4TH 11:22
PROVIDERS: ADMIT Internal Medicine; ATTEND Internal Medicine
PROC: 027034Z Dilation of Coronary Artery, One Artery with Drug-eluting Intraluminal Device, Percutaneous Approach (ICD-10-PCS; principal; 2022-06-01)
PROC: 4A023N7 Measurement of Cardiac Sampling and Pressure, Left Heart, Percutaneous Approach (ICD-10-PCS; 2022-06-01)
PROC: B2111ZZ Fluoroscopy of Multiple Coronary Arteries using Low Osmolar Contrast (ICD-10-PCS; 2022-06-01)
PROC: 4A033BC Measurement of Arterial Pressure, Coronary, Percutaneous Approach (ICD-10-PCS; 2022-06-01)
DX: I25.110 Atherosclerotic heart disease of native coronary artery with unstable angina pectoris (principal); I10 Essential (primary) hypertension; E78.5 Hyperlipidemia, unspecified; I95.2 Hypotension due to drugs; T46.3X5A Adverse effect of coronary vasodilators, initial encounter; R00.1 Bradycardia, unspecified; Z95.5 Presence of coronary angioplasty implant and graft; Z79.01 Long term (current) use of anticoagulants; Z86.73 Personal history of transient ischemic attack (TIA), and cerebral infarction without residual deficits; Z79.82 Long term (current) use of aspirin; Z79.899 Other long term (current) drug therapy; Z20.822 Contact with and (suspected) exposure to COVID-19
CPT/HCPCS: 36415; 70450; 71045; 76937; 80048; 80053; 80076; 81241; 82607; 82746; 82947; 83090; 83735; 83880; 84484; 85025; 85300; 85302; 85305; 85306; 85347; 85610; 85730; 86147; 87811; 93005; 93458; 94760; 96372; 99284; C1725; C1769; C1893; C9600; J1644; J1650; J2250; J2370; J2785; J3010; J7030; J7040; J7060; Q9967

== ENCOUNTER 2022-06-03 20:30 | Observation (INO) | payer OTHER ==
[2022-06-03 21:14] LABS: Absolute Lymphocytes (CBC) 1.3 K/uL (0.7-4.9); Hematocrit 37.7 % (39.6-49.0); Lymphocytes % 19.7 % (15.3-44.8); MPV 7.5 fL (7.6-11.3); RBC Red Blood Cell Count 4.66 M/uL (4.33-5.43)
[2022-06-03 21:21] LABS: Protime INR 1.1
[2022-06-03 21:54] LABS: Potassium 2.8 mmol/L (3.5-5.1); Troponin High Sensitivity 76.5 pg/mL (<58.9)
--- NOTE | 2022-06-03 22:02 | RAD REPORT ---
EXAM DESCRIPTION: RAD - Chest Single View - 06/03/2022 9:08 pm CLINICAL HISTORY: CHEST PAIN COMPARISON: Portable 05/28/2022 TECHNIQUE: AP portable chest image was obtained 06/03/2022 9:08 pm . FINDINGS: Lungs are clear. Heart and vasculature are normal. No measurable pleural effusion and no p neumothorax. No acute bony abnormality seen. No acute aortic findings suspected. IMPRESSION: No acute cardiopulmonary process. No significant change from comparison study.
[2022-06-03] MEDS ORDERED: NA CHLORIDE 0.9% 500 ML ONE (22:12)
[2022-06-03] MEDS ORDERED: KCL 20 MEQ/100 mL IVPB 100 ML IV ONE (22:12)
--- NOTE | 2022-06-03 22:15 | RAD REPORT ---
EXAM DESCRIPTION: CT - Head Brain Wo Cont - 06/03/2022 10:04 pm CLINICAL HISTORY: recent CVA, increased tingling and tremor COMPARISON: Head Brain Wo Cont dated 05/28/2022; Brain Wo Cont dated 05/19/2022 TECHNIQUE: Axial 5 mm thick images of the head were obtained without IV contrast. All CT scans are performed using dose optimization technique as appropriate and may include automated exposure control or mA/KV adjustment according to patient size. FINDINGS: No intracranial hemorrhage, mass, edema or shift of mid-line structures. No acute infarcti on changes seen. No cortical edema or sulcal effacement. No significant atrophy changes are present. Scattered areas decreased attenuation seen throughout the cerebral white matter most typically chroni c ischemic change. Pattern is not substantially different prior imaging. Ventricles are normal. Mastoid air cells and visualized portions of the paranasal sinuses are clear. No acute bony findings. IMPRESSION: Negative non-contrast CT head examination for acute finding. Scattered white matter chronic ischemic changes are present. Pattern is similar to May 28 imaging . Chronic ischemic changes can mask nonhemorrhagic acute infarction. MR brain followup can be obtained if there is ongoing concern for acute ischemia.
--- NOTE | 2022-06-03 23:04 | ER ---
Nurse's Notes [facility] Name: Melvina Cisneros Age: 66 yrs Sex: Male : 1955 Arrival Date: 06/03/2022 Time: 20:32 Bed 5 Private MD: Diagnosis: Chest pain, unspecified;Tremor, unspecified;Hypokalemia;Hypo-osmolality and hyponatremia;Essential (primary) hypertension Presentation: 06/03 20:39 Chief complaint: EMS states: Toned out for chest pressure, tremors, SOB, and HTN, EMS ll3 states pt reports stent placed on Wednesday, pt reports symptoms began at 0700. Coronavirus screen: Vaccine status: Patient reports receiving the 2nd dose of the covid vaccine. At this time, the client does not indicate any symptoms associated with coronavirus-19. Ebola Screen: No symptoms or risks identified at this time. Initial Sepsis Screen: Does the patient meet any 2 criteria? No. Patient's initial sepsis screen is negative. Does the patient have a suspected source of infection? No. Patient's initial sepsis screen is negative. Risk Assessment: Do you want to hurt yourself or someone else? Patient reports no desire to harm self or others. Onset of symptoms was June 03, 2022 at 19:00. Care prior to arrival: Medication(s) given: Amlodipine 5 mg at 1815. Transition of care: patient was not received from another setting of care. 20:39 Method Of Arrival: EMS: [facility] ll3 20:39 Acuity: ELISE 3 ll3 23:51 Note [facility] transfer center returned call transfer denied per [facility] administration. Triage Assessment: 20:47 General: Appears in no apparent distress. uncomfortable, Behavior is calm, cooperative. ll3 Pain: Complains of pain in xiphoid area Pain radiates to anterior aspect of left upper chest and mid-sternal area Pain currently is 1 out of 10 on a pain scale. Quality of pain is described as burning, Pain began 2 hours ago. Is continuous. Neuro: Level of Consciousness is awake, alert, obeys commands, Oriented to person, place, time, situation. Neuro: Reports Tremors. Cardiovascular: Patient's skin is warm and dry. Chest pain is located in epigastric area. Respiratory: Reports shortness of breath at rest since 1900. Respiratory: Respiratory effort is even, unlabored, Respiratory pattern is regular, symmetrical. Derm: Skin is pink, warm \T\ dry. Historical: - Allergies: 22:56 No Known Allergies; vc1 - Home Meds: 20:47 amlodipine oral [Active]; Xarelto Oral [Active]; Plavix Oral [Active]; rosuvastatin ll3 oral [Active]; sertraline oral [Active]; - PMHx: 20:47 Cerebrovascular accident; Hypertensive disorder; Hypercholesterolemia; ll3 - PSHx: 20:47 Cardiac Stent in 2010; Stent 06/01/22; ll3 - Immunization history:: Client reports receiving the 2nd dose of the Covid vaccine. - Social history:: Smoking status: Patient denies any tobacco usage or history of. - Family history:: not pertinent. - Hospitalizations: : The patient was recently seen at [facility]. Screenin:55 Abuse screen: Denies threats or abuse. Nutritional screening: No deficits noted. vc1 Tuberculosis screening: No symptoms or risk factors identified. Fall Risk None identified. Assessment: 21:00 Reassessment: No changes from previously documented assessment. Patient and/or family vc1 updated on plan of care and expected duration. Pain level reassessed. Patient is alert, oriented x 3, equal unlabored respirations, skin warm/dry/pink. 22:00 Reassessment: No changes from previously documented assessment. Patient and/or family vc1 updated on plan of care and expected duration. Pain level reassessed. 23:00 Reassessment: No changes from previously documented assessment. Patient and/or family vc1 updated on plan of care and expected duration. Pain level reassessed. Patient is alert, oriented x 3, equal unlabored respirations, skin warm/dry/pink. 06/04 00:00 Reassessment: No changes from previously documented assessment. Patient and/or family vc1 updated on plan of care and expected duration. Pain level reassessed. Patient is alert, oriented x 3, equal unlabored respirations, skin warm/dry/pink. 01:00 Reassessment: No changes from previously documented assessment. Patient and/or family vc1 updated on plan of care and expected duration. Pain level reassessed. Patient is alert, oriented x 3, equal unlabored respirations, skin warm/dry/pink. Patient denies pain at this time. Vital Signs: 06/03 20:39 BP 156 / 92; Pulse 67; Resp 13; Temp 97.7(O); Pulse Ox 98% on R/A; Weight 97.98 kg (R); ll3 Height 5 ft. 10 in. (177.80 cm); Pain 08/18; 22:30 BP 125 / 82; Pulse 52; Resp 14; Pulse Ox 98% ; vc1 23:05 BP 114 / 71; Pulse 54; Resp 12; Pulse Ox 98% on R/A; vc1 23:30 BP 135 / 85; Pulse 50; Resp 12; Pulse Ox 97% on R/A; vc1 06/04 00:30 BP 151 / 80; Pulse 57; Resp 15; Pulse Ox 100% ; vc1 06/03 20:39 Body Mass Index 30.99 (97.98 kg, 177.80 cm) ll3 ED Course: 06/03 20:32 Patient arrived in ED. ds4 20:43 Raul Pang NP is PHCP. pm1 20:43 Avi Soler MD is Attending Physician. pm1 20:47 Triage completed. ll3 20:47 Arm band placed on Patient placed in an exam room, on a stretcher, on patient monitor, ll3 on pulse oximetry. 21:00 Patient has correct armband on for positive identification. Placed in gown. Bed in low vc1 position. Call light in reach. Side rails up X2. Client placed on continuous cardiac and pulse oximetry monitoring. NIBP monitoring applied. 21:10 XRAY Chest (1 view) In Process Unspecified. EDMS 21:56 Notified ED physician of a critical lab result(s). potassium 2.8 troponin 76.5. kl 22:05 CT Head Brain wo Cont In Process Unspecified. EDMS 22:13 Carina Mckinley, LUCILA is Primary Nurse. vc1 23:52 Transfer attempted to [facility], denied by [facility]. ds4 06/04 00:08 Anibal Grace MD is Hospitalizing Provider. rn 01:22 No provider procedures requiring assistance completed. Patient admitted, IV remains in ll3 place. 07:09 Report received from LUCILA Montiel. mb9 Administered Medications: 06/03 22:51 Drug: Potassium Chloride 20 mEq Route: IV; Rate: calculated rate; Site: right vc1 antecubital; 06/04 01:28 Follow up: Response: No adverse reaction; IV Status: Completed infusion; IV Intake: ll3 100ml 06/03 22:51 Drug: NS 0.9% 500 ml Route: IV; Rate: bolus; Site: right antecubital; vc1 23:00 Follow up: Response: No adverse reaction; IV Status: Completed infusion; IV Intake: ll3 500ml 23:54 Drug: Aspirin 325 mg Route: PO; vc1 06/04 01:28 Follow up: Response: No adverse reaction ll3 Medication: 01:22 VIS not applicable for this client. ll3 Intake: 06/03 23:00 IV: 500ml; Total: 500ml. ll3 06/04 01:28 IV: 100ml; Total: 600ml. ll3 Output: 06/03 22:24 Urine: 600ml; Total: 600ml. ll3 Outcome: 23:03 ER care complete, transfer ordered by . rn 06/04 00:09 Decision to Hospitalize by Provider. rn 01:22 Admitted to ER Hold. Please see [facility] for further documentation. ll3 01:22 Condition: stable 01:22 Instructed on the need for admit, Demonstrated understanding of instructions. 14:17 Patient left the ED. iw Signatures: Dispatcher [employer] EDMS Yane Malhotra RN RN kl Williams, Irene, RN RN iw Nieto, Roman, MD MD rn Swanson, Donovan ds4 Raul Pang, TENSION WORKER TENSION WORKER pm1 Tiana Kearney RN RN ll3 Carina Mckinley RN RN vc1 Oralia Osborn RN RN mb9 Corrections: (The following items were deleted from the chart) 06/03 20:50 20:47 PMHx: Hypertensive disorder; ll3 ll3 20:50 20:47 PMHx: Hypercholesterolemia; ll3 ll3 06/04 01:22 06/03 20:39 BP 156 / 92; Pulse 67bpm; Resp 13bpm; Pulse Ox 98% RA; Temp 97.7F Oral; ll3 122.47 kg Reported; Height 5 ft. 10 in.; BMI: 38.7; Pain 1/10; ll3
--- NOTE | 2022-06-03 23:04 | EDPHYS ---
Physician Documentation [facility] Name: Melvina Cisneros Age: 66 yrs Sex: Male : 1955 Arrival Date: 06/03/2022 Time: 20:32 Bed 5 Private MD: ED Physician Avi Soler HPI: 06/03 20:50 This 66 yrs old Male presents to ER via EMS with complaints of chest pain, tremor.rn 20:50 The patient or guardian reports chest pain that is located primarily in the substernal rn area. Onset: today. The pain radiates to both shoulders, The chest pain is described as aching, a pressure. Duration: The patient or guardian reports multiple episodes, that are intermittent. Modifying factors: The symptoms are alleviated by nothing. the symptoms are aggravated by nothing. Severity of pain: At its worst the pain was mild in the emergency department the pain has improved. The patient has experienced similar episodes in the past. The patient has been recently seen by a physician: The patient has been recently been admitted at [facility]. Pt reports recent admissions for CVA where he did not get TNK, and cardiac admission where he got stent. Reports hasn't taken his xarelto. Came in tonight because of chest pressure, radiates to neck/shoulders and also having increased tingling to left leg with intermittent tremor. . Historical: - Allergies: 22:56 No Known Allergies; vc1 - Home Meds: 20:47 amlodipine oral [Active]; Xarelto Oral [Active]; Plavix Oral [Active]; rosuvastatin ll3 oral [Active]; sertraline oral [Active]; - PMHx: 20:47 Cerebrovascular accident; Hypertensive disorder; Hypercholesterolemia; ll3 - PSHx: 20:47 Cardiac Stent in 2010; Stent 06/01/22; ll3 - Immunization history:: Client reports receiving the 2nd dose of the Covid vaccine. - Social history:: Smoking status: Patient denies any tobacco usage or history of. - Family history:: not pertinent. - Hospitalizations: : The patient was recently seen at [facility]. ROS: 20:50 Constitutional: Negative for fever, chills, and weight loss, Eyes: Negative for injury, rn pain, redness, and discharge, Neck: Negative for injury, and swelling, Cardiovascular: Negative for palpitations, and edema, Respiratory: Negative for shortness of breath, cough, wheezing, and pleuritic chest pain, Abdomen/GI: Negative for abdominal pain, nausea, vomiting, diarrhea, and constipation, Back: Negative for injury and pain, MS/Extremity: Negative for injury and deformity, Skin: Negative for injury, rash, and discoloration, Neuro: Negative for seizure Exam: 20:49 ECG was reviewed by the Attending Physician. rn 20:50 Constitutional: This is a well developed, well nourished patient who is awake, alert, rn appears anxious. Head/Face: Normocephalic, atraumatic. Eyes: Periorbital areas with no swelling, redness, or edema. Cardiovascular: Regular rate and rhythm. No pulse deficits. Respiratory: No increased work of breathing, no retractions or nasal flaring. Abdomen/GI: Soft, non-tender Skin: Warm, dry MS/ Extremity: Pulses equal, no cyanosis. Equal circumference. Neuro: Awake and alert, GCS 15, oriented to person, place, time, and situation. Cranial nerves II-XII grossly intact. Motor strength 4/5 in LLE, 5/5 elsewhere without drift. Sensory grossly intact. Vital Signs: 20:39 BP 156 / 92; Pulse 67; Resp 13; Temp 97.7(O); Pulse Ox 98% on R/A; Weight 97.98 kg (R); ll3 Height 5 ft. 10 in. (177.80 cm); Pain 08/18; 22:30 BP 125 / 82; Pulse 52; Resp 14; Pulse Ox 98% ; vc1 23:05 BP 114 / 71; Pulse 54; Resp 12; Pulse Ox 98% on R/A; vc1 23:30 BP 135 / 85; Pulse 50; Resp 12; Pulse Ox 97% on R/A; vc1 06/04 00:30 BP 151 / 80; Pulse 57; Resp 15; Pulse Ox 100% ; vc1 06/03 20:39 Body Mass Index 30.99 (97.98 kg, 177.80 cm) ll3 MDM: 06/03 20:44 Patient medically screened. rn 23:00 Differential diagnosis: acute myocardial infarction, acute pericarditis, anxiety, rn coronary artery disease congestive heart failure pulmonary embolus, stable angina, unstable angina. Data reviewed: vital signs, nurses notes, old medical records, lab test result(s), EKG, radiologic studies, CT scan, and as a result, I will admit patient. Counseling: I had a detailed discussion with the patient and/or guardian regarding: the historical points, exam findings, and any diagnostic results supporting the discharge/admit diagnosis, lab results, radiology results, the need for further work-up and treatment in the hospital. ED course: Consulted with Dr. Grace, requests transfer given [employer] patient and patient preference, as well as further w/u. . 06/04 00:10 ED course: [facility] declined patient transfer, will admit here, to Dr. Grace, family and rn patient agree and happy to stay here. . 06/03 20:45 Order name: Basic Metabolic Panel; Complete Time: 21:55 06/03 20:45 Order name: CBC with Diff; Complete Time: 21:43 06/03 20:45 Order name: D-Dimer; Complete Time: 21:43 06/03 20:45 Order name: NT PRO-BNP; Complete Time: 21:55 06/03 20:45 Order name: PT-INR; Complete Time: 21:43 06/03 20:45 Order name: Troponin HS; Complete Time: 21:55 06/03 20:45 Order name: XRAY Chest (1 view); Complete Time: 22:29 06/03 20:45 Order name: CT Head Brain wo Cont; Complete Time: 22:29 06/03 20:45 Order name: Blood Culture Adult (2) rn 06/03 20:50 Order name: Glucose, Ancillary Testing; Complete Time: 21:43 EDMT 06/03 23:06 Order name: SARS RAPID; Complete Time: 23:35 ds4 06/04 09:16 Order name: Troponin High Sensitivity; Complete Time: 19:08 EDMT 06/04 09:33 Order name: Osmolality, Serum; Complete Time: 19:08 EDMT 06/04 14:04 Order name: Basic Metabolic Panel; Complete Time: 19:08 EDMT 06/03 20:45 Order name: EKG; Complete Time: 20:46 rn 06/03 20:45 Order name: Cardiac monitoring; Complete Time: 21:04 06/03 20:45 Order name: EKG - Nurse/Tech; Complete Time: 21:04 rn 06/03 20:45 Order name: IV Saline Lock; Complete Time: 21: rn 06/03 20:45 Order name: Labs collected and sent; Complete Time: 21: rn 06/03 20:45 Order name: O2 Per Protocol; Complete Time: 21: rn 06/03 20:45 Order name: O2 Sat Monitoring; Complete Time: 21: rn 06/04 10:05 Order name: US; Complete Time: 19:08 EDMS EC/26 20:49 Rate is 64 beats/min. Rhythm is regular. QRS [place] is Normal. RI interval is normal. QRS rn interval is normal. QT interval is normal. No Q waves. T waves are Normal. No ST changes noted. Clinical impression: NSR w/ Non-specific ST/T Changes. Interpreted by me. Reviewed by me. Administered Medications: 22:51 Drug: Potassium Chloride 20 mEq Route: IV; Rate: calculated rate; Site: right vc1 antecubital; 06/04 01:28 Follow up: Response: No adverse reaction; IV Status: Completed infusion; IV Intake: ll3 100ml 06/03 22:51 Drug: NS 0.9% 500 ml Route: IV; Rate: bolus; Site: right antecubital; vc1 23:00 Follow up: Response: No adverse reaction; IV Status: Completed infusion; IV Intake: ll3 500ml 23:54 Drug: Aspirin 325 mg Route: PO; vc1 06/04 01:28 Follow up: Response: No adverse reaction ll3 Disposition Summary: 06/04/22 00:09 Hospitalization Ordered Hospitalization Status: Observation rn Provider: Anibal Grace rn Condition: Stable(06/04/22 00:09) rn Problem: an ongoing problem(06/04/22 00:09) rn Symptoms: have improved(06/04/22 00:09) rn Bed/Room Type: Standard rn Location: Telemetry/MedSurg (observation)(06/04/22 12:36) em1 Room Assignment: 210(06/04/22 12:36) em1 Diagnosis - Chest pain, unspecified(06/04/22 00:09) rn - Tremor, unspecified(06/04/22 00:09) rn - Hypokalemia(06/04/22 00:09) rn - Hypo-osmolality and hyponatremia(06/04/22 00:09) rn - Essential (primary) hypertension rn Forms: - Medication Reconciliation Form rn - SBAR form rn Signatures: Dispatcher [employer] Avi Colunga MD MD rn Martinez, Eric em1 Tati Rachel RN RN eb1 Tiana Kearney, RN RN ll3 Carina Mckinley, RN RN vc1 Corrections: (The following items were deleted from the chart) 06/03 20:50 20:47 PMHx: Hypertensive disorder; ll3 ll3 20:50 20:47 PMHx: Hypercholesterolemia; ll3 ll3 06/04 00:08 06/03 23:03 rn rn 06/04 00:08 06/03 23:03 [facility] rn rn 06/04 00:08 06/03 23:03 Higher level of care rn rn 06/04 00:08 06/03 23:03 Stable rn rn 06/04 00:08 06/03 23:03 an ongoing problem rn rn 06/04 00:08 06/03 23:03 have improved rn rn 06/04 00:08 06/03 23:03 Chest pain, unspecified rn rn 06/04 00:08 06/03 23:03 Tremor, unspecified rn rn 06/04 00:08 06/03 23:03 Hypokalemia rn rn 06/04 00:08 06/03 23:03 Hypo-osmolality and hyponatremia rn rn 06/04 00:29 00:09 Telemetry/MedSurg (observation) rn eb1 00:29 00:09 rn eb1 12:36 00:29 [facility] ER HOLD eb1 em1 12:36 00:29 ERHOLD- eb1 em1
[2022-06-03 23:34] LABS: SARS-CoV-2 Antigen Rapid Res Negative (Negative)
[2022-06-03] MEDS ORDERED: ASPIRIN 325 MG TAB ONE (23:52)
[2022-06-04] MEDS ORDERED: ONDANSETRON 4 MG/2 ML VIAL IV PRN (01:08)
[2022-06-04 02:05] VITALS: BMI 30.9
[2022-06-04] MEDS ORDERED: CLOPIDOGREL 75 MG TABLET PO ONE (07:51)
[2022-06-04] MEDS ORDERED: ASPIRIN EC 81 MG TAB PO ONE (07:53)
[2022-06-04] MEDS ORDERED: AMLODIPINE 5 MG TAB PO ONE (07:55)
[2022-06-04] MEDS ORDERED: POTASSIUM CL 40 MEQ in NA CHLORIDE 0.9% 500 ML IV SCH (08:00)
[2022-06-04] MEDS: SERTRALINE HCL 50 MG TAB PO SCH (09:00)
[2022-06-04] MEDS: RIVAROXABAN 10 MG TABLET PO SCH (09:00)
[2022-06-04] MEDS ORDERED: cloNIDine HCL 0.1 MG TAB PO PRN (09:00)
[2022-06-04] MEDS ORDERED: lisinopriL 10 MG TAB PO SCH (09:00)
[2022-06-04] MEDS: CLOPIDOGREL 75 MG TABLET PO SCH (09:00)
[2022-06-04] MEDS ORDERED: ASPIRIN EC 81 MG TAB PO SCH ×2 (09:00→21:00)
[2022-06-04] MEDS ORDERED: CLOPIDOGREL 75 MG TABLET ONE (09:24)
[2022-06-04] MEDS ORDERED: lisinopriL 10 MG TAB ONE (09:24)
--- NOTE | 2022-06-04 10:04 | RAD REPORT ---
EXAM DESCRIPTION: US - Abdomen Pelvis Scan US - 06/04/2022 9:26 am CLINICAL HISTORY: High blood pressure RENAL ARTERY DOPPLER BILAT PL. COMPARISON: No comparisonsNo comparisons FINDINGS: The bilateral kidneys are normal in size, the right measuring 10.2 cm and the left measuri ng 9.4 cm. Aortic velocity: 121 cm/second Right proximal renal artery: 177 cm/second Right mid renal artery: 135 cm/second Right distal renal artery: 138 cm/second Right renal arcuate artery resistive index: 0.7 Right renal artery / aorta ratio: 1.5 Left proximal renal artery: 148 cm/second Left mid renal artery: 128 cm/second Left distal renal artery: 90 cm/second Left renal arcuate artery resistive index: 0.7 Left renal artery/aorta ratio: 1.2 Normal waveforms demonstrated within the bilateral renal arteries. IMPRESSION: No evidence of hemodynamically significant stenosis within the bilateral renal arteries.
--- NOTE | 2022-06-04 14:31 | EKG ---
Test Date: 2022-06-03 Test Time: 20:42:05 Systems Auditor: TEAGAN MEASUREMENT RESULTS: Intervals: Rate: 64 MT: 198 QRSD: 94 QT: 448 QTc: 462 [place]: P: 83 MT: 198 QRS: 8 T: -60 INTERPRETIVE STATEMENTS: Normal sinus rhythm Lateral infarct, age undetermined Inferior infarct, age undetermined Abnormal ECG Compared to ECG 05/28/2022 04:41:26 Sinus bradycardia no longer present Myocardial infarct finding still present Electronically Signed On 06-04-22 14:28:25 CDT by Adrian Ruiz
--- NOTE | 2022-06-04 20:04 | P.HP ---
Certification for Inpatient Patient admitted to: Inpatient With expected LOS: >2 Midnights Practitioner: I am a practitioner with admitting privileges, knowledge of patient current condition, hospital course, and medical plan of care. Services: Services provided to patient in accordance with Admission requirements found in Title 42 Section 412.3 of the Code of Federal Regulations Patient History Date of Service: 06/04/22 Reason for admission: SHAKY LEGS, TINGLY CHEST, BP FLUCTUATES History of Present Illness: RANDALL UMANZOR HAS HAD MANY SEVERE ISSUES IN LAST ONE MONTH, 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 IT IS UNUSUAL AND K SHOULD NOT DROP BUT GO UP WITH ELDEPRYL. I DECIDED TO KEEP HIM ONE DAY FOR RENAL DOPPLER, 24 HOUR URINE WORK UP FOR HTN AND CONTROL HIS ELECTROLYTES. SODIUM IS ALREADY UP TO 124 WITH NO INTERVENTIONS AND AHA DIET JUST NOT GETTING ANY DIURETICS. Allergies No Known Allergies Allergy (Unverified 05/19/22 21:38) Home Medications: Rivaroxaban [Xarelto*] 20 mg PO DAILY #90 tab 05/20/22 Amlodipine [Norvasc*] 5 mg PO BEDTIME 05/28/22 Aspirin [Aspirin EC 81 MG] 81 mg PO BEDTIME 05/28/22 Eplerenone 50 mg PO DAILY 05/28/22 Rosuvastatin Calcium 20 mg PO BEDTIME 05/28/22 cloNIDine HCL [Clonidine HCl] 0.1 mg PO PRN 05/28/22 Clopidogrel Bisulfate [Plavix*] 75 mg PO DAILY #90 06/02/22 Melatonin 5 mg PO BEDTIME #0 06/02/22 Sertraline HCl 50 mg PO DAILY #30 06/02/22 - Past Medical/Surgical History Diabetic: No -: HTN -: HLD -: Obesity -: CVA - Family History Father -: Stroke Mother -: Hypertension - Social History Smoking Status: Former smoker Alcohol use: No CD- Drugs: No Caffeine use: No Place of Residence: Home Review of Systems 10-point ROS is otherwise unremarkable General: Weakness Physical Examination - Vital Signs Temperature: 97.2 F Blood Pressure: 128/70 Pulse: 60 Respirations: 18 Pulse Ox (%): 98 - Physical Exam General: Oriented x3, Mild distress (ANXIOUS MAINLY) HEENT: Atraumatic, PERRLA, Mucous membr. moist/pink, EOMI, Sclerae nonicteric Neck: Supple, 2+ carotid pulse no bruit, No LAD, Without JVD or thyroid abnormality Respiratory: Clear to auscultation bilaterally, Normal air movement Cardiovascular: Regular rate/rhythm, Normal S1 S2 Gastrointestinal: Normal bowel sounds, No tenderness Musculoskeletal: No tenderness Integumentary: No rashes Neurological: Normal gait, Normal speech, Abnormal sensation (SINCE THE STROKE IN LEGS.) Lymphatics: No axilla or inguinal lymphadenopathy - Studies Laboratory Data (last 24 hrs) 06/03/22 21:01: PT 12.1, INR 1.10 06/03/22 21:01: WBC 6.40, Hgb 13.6, Hct 37.7 L, Plt Count 253 06/03/22 21:01: Sodium 121 L, Potassium 2.8 L*, BUN 8, Creatinine 0.94, Glucose 156 H Microbiology Data (last 24 hrs): 06/03/22 22:26 Blood - Blood Anaerobic Blood Culture - Final Assessment and Plan - Problems (Diagnosis) (1) Hyponatremia Current Visit: Yes Status: Acute Plan: HOLD ALL DIURETICS CHECK IN AM. (2) Hypokalemia Current Visit: Yes Status: Acute Plan: IV REPLACED. IT IS UNUSUAL TO HAVE LOW K AFTER EPLERNONE. IT SHOULD GO HIGHER RULE OUT SECONDARY HTN CASUES. (3) Anxiety disorder Current Visit: Yes Status: Chronic Plan: [facility] SHOULD HELP. Qualifiers: Anxiety disorder type: generalized anxiety disorder Qualified Code(s): F41.1 - Generalized anxiety disorder (4) Uncontrolled hypertension Current Visit: No Status: Acute - Advance Directives Does patient have a Living Will: No Does patient have a Durable POA for Healthcare: No
[2022-06-04 20:23] LABS: Potassium 3.9 mmol/L (3.5-5.1)
[2022-06-04] MEDS ORDERED: AMLODIPINE 5 MG TAB PO SCH (21:00)
[2022-06-04] MEDS ORDERED: ROSUVASTATIN 10 MG TAB PO SCH (21:00)
[2022-06-04] MEDS ORDERED: MELATONIN 5 MG TABLET PO SCH (21:00)
[2022-06-04] MEDS ORDERED: HOME MED 1 EA UNK (Rosuvastatin Calcium [Rosuvastatin Calcium] 20 MG Tablet) PO SCH (21:00)
--- NOTE | 2022-06-05 00:41 | CON ---
Date of Consultation: 06/04/2022 Reason For Consultation: Chest pain and low blood pressure. History Of Present Illness: This is a middle-aged male, very well known to me, had a recent thromboe mbolic stroke, presumptive paroxysmal atrial fibrillation, and also a recent stent was placed. There is severe RCA disease, comes in because last night his blood pressure went up acute, checking his bl ood pressure, he gets nervous about it, so he took 50 mg of one of the diuretics that he has at home, so his blood pressure dropped very low. He started to shake, felt very weak, so presented to the em ergency room, had some chest discomfort, but not severe. He has been taking his antiplatelets withou t interruption. Past Medical History: Hypertension, dyslipidemia, and coronary artery disease, as well as recent thr omboembolic stroke. Medications: Refer reconciliation sheet for detailed list. Allergies: NO KNOWN DRUG ALLERGIES. Family History: No premature coronary artery disease or cancer. Social History: Does not smoke or drink. Does not use any drugs. Review of Systems: All systems reviewed are negative except for mentioned in HPI. Physical Examination: Vital signs: Reviewed. Head and Neck: Pupils are equal, reactive to light. Intact eye movements. No JVD. No cervical lym phadenopathy. Neck is supple. Thyroid is not enlarged. Lungs: Clear to auscultation bilaterally. No rhonchi, wheezing, or crackles. No accessory muscle u se. Heart: Regular rate and rhythm. No extra sounds. Abdomen: Soft, nontender. Bowel sounds positive. No organomegaly. No masses or hernia. No rigidi ty or rebound. Extremities: No edema, clubbing, or cyanosis. Intact pulses. Skin: No rash. Neurologic: Alert, awake, oriented x3. No acute focal deficits appreciated. Lymph Nodes: No cervical or axillary lymphadenopathy. Investigations: Troponin was 75. BUN is 8, creatinine 0.98, and his sodium was 124. Initially, sod ium was 121 and potassium was 2.8. Assessment And Recommendations: 1.Chest pain. This is a demand due to the drop in his blood pressure. No further cardiac workup is recommended. 2.Hypertension. I explained to the patient that he should stop doing frequent blood pressure checks as he gets anxious about it and then he over medicates himself and overmedicated at this time with d iuretics and became dehydrated. Gentle hydration is recommended and monitor BUN, creatinine, and amarilis ctrolytes. Avoid diuretics and put him on lisinopril 10 mg daily and continue amlodipine. Case disc ussed with Dr. Grace and I will follow the patient while in the hospital. 3.Hyponatremia and hypokalemia due to the diuretics and the patient should improve with gentle hydra tion. SR/MODL Voice ID: [id number] Report ID: [id number]
[2022-06-05 03:44] VITALS: O2SAT 98
[2022-06-05 03:59] LABS: Potassium 3.7 mmol/L (3.5-5.1)
[2022-06-05] MEDS: RIVAROXABAN 10 MG TABLET PO SCH (08:36)
[2022-06-05] MEDS: CLOPIDOGREL 75 MG TABLET PO SCH (08:36)
[2022-06-05] MEDS: SERTRALINE HCL 50 MG TAB PO SCH (08:36)
[2022-06-05] MEDS ORDERED: ALPRAZOLAM 0.25 MG TABLET PO SCH (09:00)
[2022-06-05] MEDS ORDERED: lisinopriL 20 MG TAB PO SCH (09:00)
[2022-06-05 12:31] VITALS: BP 145/73; TEMP 97.9
--- NOTE | 2022-06-05 13:25 | P.DS ---
Admission Date: 06/04/22 Discharge Date: 06/05/22 Disposition: ROUTINE DISCHARGE Discharge Condition: FAIR Reason for Admission: SHAKY LEGS, TINGLY CHEST, BP FLUCTUATES - Problems (1) Hyponatremia Current Visit: Yes Status: Acute (2) Hypokalemia Current Visit: Yes Status: Acute (3) Anxiety disorder Current Visit: Yes Status: Chronic Qualifiers: Anxiety disorder type: generalized anxiety disorder Qualified Code(s): F41.1 - Generalized anxiety disorder (4) Uncontrolled hypertension Current Visit: No Status: Acute Brief History of Present Illness: RANDALL UMANZOR HAS HAD MANY SEVERE ISSUES IN LAST ONE MONTH, 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 IT IS UNUSUAL AND K SHOULD NOT DROP BUT GO UP WITH ELDEPRYL. I DECIDED TO KEEP HIM ONE DAY FOR RENAL DOPPLER, 24 HOUR URINE WORK UP FOR HTN AND CONTROL HIS ELECTROLYTES. SODIUM IS ALREADY UP TO 124 WITH NO INTERVENTIONS AND AHA DIET JUST NOT GETTING ANY DIURETICS. Hospital Course: RANDALL CAME WITH SHAKINESS, TINGLY FEELING, HAD LOW SODIUM OF 121. FURTHER EVAL FOUND THAT HE HAD LOW S. OSM, LOW U OSM AND LOW SODIUM IN URINE SUGGESTING DILUTIONAL HYPONATREMIA. HE DRINKS ABOUT 96 OZ OF WATER DAILY. HE WILL CUT DOWN TO 60 OZ DAILY. I WILL FU SODIUM. K WAS ALSO LOW THAT WE DON'T EXPECT WITH ELDEPRYL. HE WILL GO HOME ON LISINOPIRL. HE KNOWS SE. HE WILL CONTINUE AMLODIPINE, PLAVIX, ASPIRIN AND LOW DOSE XARELTO UNTIL WE KNOW MORE ABOUT STATUS OF HOLTER FROM DR. KIMBLE. HE WILL SEE ME NEXT WEEK. Vital Signs/Physical Exam: Temp Pulse Resp BP Pulse Ox 97.9 F 52 16 145/73 H 98 06/05/22 12:00 06/05/22 12:00 06/05/22 12:00 06/05/22 12:00 06/05/22 12:00 General: Alert, In no apparent distress HEENT: Atraumatic, PERRLA, EOMI Neck: Supple, JVD not distended Respiratory: Clear to auscultation bilaterally, Normal air movement Cardiovascular: Regular rate/rhythm, Normal S1 S2 Gastrointestinal: Normal bowel sounds, No tenderness Musculoskeletal: No tenderness Integumentary: No rashes Neurological: Normal speech, Normal tone, Normal affect Lymphatics: No axilla or inguinal lymphadenopathy Laboratory Data at Discharge: WBC 6.40 K/uL (4.3-10.9) 06/03/22 21:01 Hgb 13.6 g/dL (13.6-17.9) 06/03/22 21:01 Hct 37.7 % (39.6-49.0) L 06/03/22 21:01 Plt Count 253 K/uL (152-406) 06/03/22 21:01 PT 12.1 SECONDS (9.5-12.5) 06/03/22 21:01 INR 1.10 06/03/22 21:01 Sodium 126 mmol/L (136-145) L 06/05/22 03:16 Potassium 3.7 mmol/L (3.5-5.1) 06/05/22 03:16 BUN 9 mg/dL (7-18) 06/05/22 03:16 Creatinine 0.94 mg/dL (0.55-1.3) 06/05/22 03:16 Glucose 97 mg/dL (74-106) 06/05/22 03:16 Home Medications: Rivaroxaban [Xarelto*] 20 mg PO DAILY #90 tab 05/20/22 Amlodipine [Norvasc*] 5 mg PO BEDTIME 05/28/22 Aspirin [Aspirin EC 81 MG] 81 mg PO BEDTIME 05/28/22 Rosuvastatin Calcium 20 mg PO BEDTIME 05/28/22 cloNIDine HCL [Clonidine HCl] 0.1 mg PO PRN 05/28/22 Clopidogrel Bisulfate [Plavix*] 75 mg PO DAILY #90 06/02/22 Melatonin 5 mg PO BEDTIME #0 06/02/22 Sertraline HCl 50 mg PO DAILY #30 06/02/22 Rosuvastatin [Crestor*] 20 mg PO BEDTIME tab 06/05/22 lisinopriL [Prinivil*] 20 mg PO DAILY #90 tab 06/05/22 New Medications: lisinopriL [Prinivil*] 20 mg PO DAILY #90 tab Followup: Anibal Grace MD [Primary Care Provider] -
--- NOTE | 2022-06-06 02:14 | PN ---
Date of Progress Note: 06/05/2022 Subjective: Seen by bedside, doing well. No complaints. Review of Systems: No chest pain, shortness of breath, orthopnea, or cough. No nausea, vomiting, or diarrhea. No abdom inal pain. No dysuria, polyuria, or urinary urgency. All other systems were reviewed and they were negative. Physical Examination: Vital signs: Reviewed. Head And Neck: Pupils are equal and reactive to light. Intact eye movements. No JVD. No cervical lymphadenopathy. Neck is supple. Thyroid is not enlarged. Lungs: Clear to auscultation bilaterally. No rhonchi, wheezing, or crackles. No accessory muscle u se. Heart: Regular rate and rhythm. No extra sounds. Abdomen: Soft, nontender. Bowel sounds positive. No organomegaly. No masses or hernia. No rigidi ty or rebound. Extremities: No edema, clubbing, or cyanosis. Intact pulses. Skin: No rash. Neuro: Alert, awake, and oriented x3. No acute focal deficits appreciated. Investigations: BUN is 9, creatinine 0.94, sodium 126, and potassium 3.7. Assessment And Recommendation: 1.Elevated troponin due to demand ischemia, due to the low blood pressure episode. No further cardi ac workup is recommended at this point and I will follow the patient on outpatient basis. Continue, however, the aspirin and Plavix for now. 2.Thromboembolic stroke recently. Continue Xarelto. Continue triple therapy for a month after the stent was put in and then drop the aspirin. 3.Hypertension. Blood pressure is well controlled. Continue lisinopril and amlodipine. 4.Hyponatremia and hypokalemia due to diuretics. Avoid diuretics in the future as treatment of his hypertension and avoid clonidine. SR/MODL Voice ID: [id number] Report ID: [id number]
== END 2022-06-05 14:01 | disposition home or self-care (01) ==
LOC: ER 20:30 → ERHOLD 06-04 01:02 → 2ND 06-04 12:55
PROVIDERS: ADMIT Internal Medicine; ATTEND Internal Medicine
DX: E87.1 Hypo-osmolality and hyponatremia (principal); E87.6 Hypokalemia; F41.1 Generalized anxiety disorder; I10 Essential (primary) hypertension
CPT/HCPCS: 96365; 93005; 87040 ×2; 85025; 80048 ×4; 36415 ×2; 85610; 84300; 82947; 85379; 84484 ×2; 83880; 82384; 83835; 83930; 83935; 84585; 70450; 71045; 93975; 99285; 96366; 87811; J3480 ×2; J7040 ×2; G0378 ×3